=== PATIENT | male | born 1945 | race Caucasian/White ===

== ENCOUNTER 2019-02-22 15:55 | Emergency (ER) | payer MEDICARE ==
[2019-02-22] MEDS ORDERED: ACETAMINOPHEN 1,000 MG/100 ML BTL IVPB ONE (16:23)
--- NOTE | 2019-02-22 16:30 | Emergency Department Record ---
History of Present Illness - General Chief Complaint: Back Pain/Injury Stated Complaint: BACK PAIN/RT SHOULDER BLADE Time Seen by Provider: 02/22/19 16:09 Mode of Arrival: Ambulatory Limitations: No limitations - History of Present Illness Initial Comments: The patient is here due to back pain for 2 weeks. The onset was when he was fixing a faucet and was leaning under the sink and his back was stuck on the lip of the cupboard under the sink. Since he has had pain in the R scapula area. The pain is much worse with any bending or ROM of the R shoulder. The pain intermittently does radiate to the R shoulder but not down the arm. There is no arm weakness, numbness, or tingling. The patient also denies any CP, SOB, ZOË, fever, or cough. MD Complaint: Back pain Onset/Timin -: Week(s) Similar Symptoms Previously: No Place: Home Quality: Other Consistency: Constant Improves With: None Worsens With: None Context: Unknown Associated Symptoms: Denies other symptoms Treatments Prior to Arrival: NSAIDS Treatment Prior to Arrival Comment:: 1400 today - Related Data Previous Rx's Medication Instructions Recorded Methylprednisolone [Medrol Dose 4 mg PO DAILY #1 tab.ds.pk 02/22/19 Pack] Naproxen [Naprosyn] 500 mg PO BID #14 tablet.dr 02/22/19 Allergies Allergy/AdvReac Type Severity Reaction Status Date / Time No Known Drug Allergies Allergy Verified 02/22/19 16:01 Travel Screening - Travel/Exposure Within Last 30 Days Have you traveled within the last 30 days?: No - Travel/Exposure Within Last Year Have you traveled outside the [place] in the last year?: No - Additonal Travel Details Have you been exposed to anyone with a communicable illness?: No - Travel Symptoms Symptom Screening: None Review of Systems Constitutional: Denies: Chills, Fever Eyes: Denies: Eye discharge ENT: Denies: Congestion Respiratory: Denies: Cough, Dyspnea Cardiovascular: Denies: Chest pain Endocrine: Denies: Fatigue Gastrointestinal: Denies: Nausea Genitourinary: Denies: Dysuria Musculoskeletal: Denies: Arthralgia Past Medical History - SOCIAL HISTORY Smoking Status: Never smoker Alcohol Use: Occasional Drug Use: None - RESPIRATORY Hx Respiratory Disorders: No - CARDIOVASCULAR Hx Cardio Disorders: No - NEURO Hx Neuro Disorders: No - GI Hx GI Disorders: No - Hx Genitourinary Disorders: No - ENDOCRINE Hx Endocrine Disorders: No - MUSCULOSKELETAL Hx Musculoskeletal Disorders: No - PSYCH Hx Psych Problems: No - HEMATOLOGY/ONCOLOGY Hx Hematology/Oncology Disorders: No Family Medical History Any Significant Family History?: No Physical Exam - General General Appearance: Alert, Oriented x3, Cooperative, No acute distress - Head Head exam: Atraumatic, Normocephalic, Normal inspection - Eye Eye exam: Normal appearance, PERRL, EOMI - ENT Throat exam: Normal inspection. negative: Tonsillar erythema, Tonsillar exudate - Neck Neck exam: Normal inspection, Full ROM. negative: Tenderness - Respiratory Respiratory exam: Normal lung sounds bilaterally. negative: Respiratory distress - Cardiovascular Cardiovascular Exam: Regular rate, Normal rhythm, Normal heart sounds - GI/Abdominal GI/Abdominal exam: Soft, Normal bowel sounds. negative: Tenderness - Extremities Extremities exam: Normal inspection, Full ROM, Normal capillary refill. negative: Tenderness - Back Back exam: Reports: Normal inspection, Paraspinal tenderness (The pain is 100% reproducible to palpation over the area between the R scapula and the spine. There is no swelling, bruising, or erythema appreciated in the area.). Denies: Vertebral tenderness Image of Body Front/Back: 1 - Area of pain and tenderness. - Neurological Neurological exam: Alert, Normal gait, Oriented X3, Reflexes normal. negative: Abnormal gait, Altered, Motor sensory deficit Course Vital Signs 02/22/19 16:01 Temperature 97.2 F L Pulse Rate 60 Respiratory 18 Rate Blood Pressure 145/76 Pulse Ox 97 - Reevaluation(s) Reevaluation #1: The patient is doing better at this time and the pain is about 50% better. Now there is no pain over the R medial scapula area but only in the R deltoid area. There is no arm or leg numbness, weakness, or tingling. I did explain to the patient that I can concerned he may have a pinched nerve in his lower neck or upper thoracic area. He is to take the medicines as prescribed and is to see his PCP this week for further evaluation including a possible MRI. 02/22/19 18:17 Medical Decision Making - Data Complexity MDM Data: Labs Ordered and/or Reviewed, X-Ray Ordered and/or Reviewed - Lab Data Result diagrams: 02/22/19 16:30 02/22/19 16:30 - Radiology Data Radiology results: Report reviewed (CXR: Neg.) Disposition Disposition: Discharge Clinical Impression: Spasm of thoracic back muscle Disposition: Home, Self-Care Condition: (2) Stable Instructions: Muscle Spasm (ED) Additional Instructions: Please take the Naprosyn and Medrol Dose Pack as directed. Please see your family doctor this week for re check and further testing. Return to the ER for any worsening pain, arm or leg numbness, weakness, or any bowel or bladder issues. Prescriptions: Methylprednisolone [Medrol Dose Pack] 4 mg PO DAILY #1 tab.ds.pk Naproxen [Naprosyn] 500 mg PO BID #14 tablet.dr Forms: Patient Portal Access Time of Disposition: 18:22 Quality - Quality Measures Quality Measures: N/A - Blood Pressure Screening View Details: Yes Does Patient Have Any of the Following: No Blood Pressure Classification: Hypertensive Reading Systolic Measurement: 145 Diastolic Measurement: 76 Screening for High Blood Pressure: < First Hypertensive BP, F/U Documented > [G8950] First Hypertensive Follow-up Interventions: Referral to alternative/primary care provider.
[2019-02-22 16:36] LABS: ABSOLUTE NEUTROPHIL COUNT 6.77; BASO % 0.2 % (0-6); EOS % 2.4 % (0-6); GRAN % 71.3 % (47-80); HEMATOCRIT 44.1 % (42.0-52.0); HEMOGLOBIN 14.9 gm/dl (14.0-18.0); LYMPH % 18.9 % (16-45); MEAN CORPUSCULAR HEMOGLOBIN 29.7 pg (27-33); MEAN CORPUSCULAR HGB CONC 33.8 g/dl (32-36); MEAN PLATELET VOLUME 10.2 fl (7.4-10.4); MONO % 7.2 % (0-9); PLATELET COUNT 204 K/uL (130-400); RED BLOOD COUNT 5.01 M/uL (4.40-5.70); RED CELL DISTRIBUTION WIDTH 12.8 % (11.5-14.5); WHITE BLOOD COUNT W/O DIFF 9.5 K/uL (4.2-12.2)
[2019-02-22 16:48] LABS: BLOOD UREA NITROGEN 15 mg/dL (8-23); CREATININE 1.1 mg/dL (0.7-1.2); EST GLOMERULAR FILTRATION RATE > 60 mL/min
[2019-02-22 16:51] LABS: GLUCOSE,RANDOM 102 mg/dL (74-109)
[2019-02-22] MEDS ORDERED: KETOROLAC 30 MG/ML VIAL IVP ONE (17:18)
[2019-02-22] MEDS ORDERED: METHYLPREDNISOLONE PF 125MG/VIAL IVP ONE (17:59)
--- NOTE | 2019-02-23 14:08 | RADIOLOGY REPORT ---
EXAM: CHEST, TWO VIEWS HISTORY: RIGHT SHOULDER BLADE AND SCAPULA PAIN SINCE WORKING IN AN ODD POSITION UNDER A SINK TWO WEEKS AGO. TECHNIQUE: PA and lateral views of the chest were obtained. Comparison: None. FINDINGS: The heart size is normal. Mild torsion of the aorta. No definite acute infiltrate seen. No pleural effusion or pneumothorax evident. The lungs do appear somewhat hyperinflated which may represent some underlying COPD. Mild spurring in the spine. IMPRESSION: 1. SOME HYPERINFLATION WHICH MAY REPRESENT SOME UNDERLYING COPD. 2. NO ACUTE INFILTRATE EVIDENT. 3. MILD SPURRING IN THE SPINE. JOB NUMBER: [id number] [facility]
== END 2019-02-22 18:35 | disposition home or self-care (01) ==
LOC: ER 15:55
DX: G89.11 Acute pain due to trauma (principal); M62.830 Muscle spasm of back; M25.511 Pain in right shoulder; M54.2 Cervicalgia; X50.0XXA Overexertion from strenuous movement or load, initial encounter; Y92.009 Unspecified place in unspecified non-institutional (private) residence as the place of occurrence of the external cause
CPT/HCPCS: 71046; 80048; 85025; 96374; 96375; 99284; J1885; J2930